=== PATIENT | female | born 1980 | race Caucasian/White ===

== ENCOUNTER 2018-03-29 12:36 | Outpatient (CLI) | payer OTHER | END 2018-03-29 12:39 | disposition home or self-care (01) | LOC: SONOGRAMA 12:36 | DX: E04.1 Nontoxic single thyroid nodule (principal) ==

== ENCOUNTER → 2019-09-22 | Outpatient (CLI) | payer OTHER | END | disposition home or self-care (01) | LOC: SONOGRAMA 10:36 | DX: E07.89 Other specified disorders of thyroid (principal); N60.11 Diffuse cystic mastopathy of right breast ==

== ENCOUNTER 2023-03-24 09:20 | Outpatient (CLI) | payer OTHER | END 2023-03-24 09:28 | disposition home or self-care (01) | LOC: SONOGRAMA 09:20 | PROVIDERS: ATTEND Internal Medicine | DX: R04.2 Hemoptysis (principal); R22.1 Localized swelling, mass and lump, neck ==